=== PATIENT | female | born 1965 | race Caucasian/White ===

== ENCOUNTER 2016-11-24 10:18 | Emergency (ER) | payer OTHER ==
[2016-11-24 10:25] VITALS: BP 146/96; PULSE 86; TEMP 98.1; BMI 33.6
[2016-11-24] MEDS ORDERED: IBUPROFEN 400 MG TABLET (FP) PO ONE ×2 (11:05→11:13)
--- NOTE | 2016-11-24 11:10 | PDOC ---
History of Present Illness - General Chief Complaint: Cold Symptoms Stated Complaint: HEADACHE, COLD, COUGH Time Seen by Provider: 11/24/16 10:38 History Source: Patient - History of Present Illness Timing/Duration: reports: other Associated Symptoms: reports: cough, earache, fever/chills, headache, nasal congestion, nasal drainage. denies: sore throat Past History - Past Medical History Allergies/Adverse Reactions: Allergies Allergy/AdvReac Type Severity Reaction Status Date / Time No Known Allergies Allergy Verified 11/24/16 10:25 Home Medications: Ambulatory Orders Amoxicillin - [Amoxicillin 875mg Tablet -] 875 mg PO BID #14 tab 11/24/16 Ibuprofen [Motrin -] 800 mg PO Q6H #30 tablet 11/24/16 Other medical history: NONE - Psycho/Social/Smoking Cessation Hx Anxiety: No Suicidal Ideation: No Smoking History: Never smoked Hx Alcohol Use: No Drug/Substance Use Hx: No Substance Use Type: None Review of Systems - Review of Systems Constitutional: Yes: Fever HEENTM: Yes: Ear Pain, Nose Congestion. No: Throat Pain Respiratory: Yes: Cough. No: Shortness of Breath *Physical Exam - Vital Signs Last Vital Signs Temp Pulse Resp BP Pulse Ox 98.1 F 86 20 146/96 98 11/24/16 10:22 11/24/16 10:22 11/24/16 10:22 11/24/16 10:22 11/24/16 10:22 - Physical Exam General Appearance: Yes: Appropriately Dressed. No: Apparent Distress HEENT: positive: Normal Voice, Pharynx Normal, TM Bulging (w/ erythema). negative: Scleral Icterus (R), Scleral Icterus (L) Neck: positive: Supple. negative: Lymphadenopathy (R), Lymphadenopathy (L) Respiratory/Chest: positive: Lungs Clear, Normal Breath Sounds. negative: Respiratory Distress Cardiovascular: positive: Regular Rate, S1, S2 Integumentary: positive: Dry, Warm Neurologic: positive: Fully Oriented, Alert, Normal Mood/Affect Medical Decision Making - Medical Decision Making 11/24/16 11:08 51 yo F, no sig hx, here w/ [facility] with R ear pain radiating into neck w/ cough, congestion and subjective fever x 2 weeks. Taking otc meds with minimal relief. Pt stable in ED w/ bulging, erythematous R TM, c/w OME, exam otherwise unremarkable. Dc w/ abx *DC/Admit/Observation/Transfer Diagnosis at time of Disposition: Otitis media Qualifiers: Otitis media type: unspecified nonsuppurative Laterality: right Qualified Code( s): H65.91 - Unspecified nonsuppurative otitis media, right ear - Discharge Dispostion Disposition: HOME Condition at time of disposition: Stable - Prescriptions Prescriptions: Amoxicillin - [Amoxicillin 875mg Tablet -] 875 mg PO BID #14 tab Ibuprofen [Motrin -] 800 mg PO Q6H #30 tablet - Referrals Referrals: Kemar Cope MD [Primary Care Provider] - - Patient Instructions Printed Discharge Instructions: Middle Ear Infection Additional Instructions: [place] los medicamentos segn las indicaciones. Retorno por empeoramiento de los s ntomas Print Language: DIVEHI
== END 2016-11-24 11:43 | disposition home or self-care (01) ==
LOC: JERFT 10:18
DX: H65.91 Unspecified nonsuppurative otitis media, right ear (principal)
CPT/HCPCS: 99281-25

== ENCOUNTER 2016-11-26 09:24 | Day surgery (SDC) | payer OTHER ==
[2016-11-26 10:40] VITALS: BMI 33.6
[2016-11-26 12:58] VITALS: TEMP 98
[2016-11-26 13:26] VITALS: PULSE 69
[2016-11-26 13:39] VITALS: BP 137/96
--- NOTE | 2016-11-27 12:06 | PATH ---
Surgical Pathology Report Patient Name: USMAN BAY [facility]. Rec. #: [id number] /Age/Gender: 1965 (Age: 51) / F Account: [id number] Location: [facility]-ENDOSCOPY Taken: 11/26/2016 Received: 11/26/2016 Reported: 11/27/2016 Physicians: Bryan Castle M.D. Specimen(s) Received A: BX DUODENUM B: BX ERYTHEMA ANTRUM C: BX BODY OF STOMACH D: BX IRREGULAR Z-LINE Clinical History GERD Erythema in antrum, irregular Z line Final Diagnosis A. DUODENUM, BIOPSY: MILD NONSPECIFIC CHRONIC DUODENITIS. IMMUNOSTAIN FOR H. PYLORI IS NEGATIVE. B. STOMACH, ANTRUM ERYTHEMA, BIOPSY: FOCAL MILD ACTIVE GASTRITIS AND REACTIVE GASTROPATHY. IMMUNOSTAIN FOR H. PYLORI IS NEGATIVE. C. STOMACH, BODY, BIOPSY: GASTRIC FUNDIC MUCOSA WITH NO PATHOLOGIC CHANGES. IMMUNOSTAIN FOR H. PYLORI IS NEGATIVE. D. ESOPHAGUS, Z LINE, BIOPSY: SQUAMOUS AND GASTRIC MUCOSA WITH CHRONIC INFLAMMATION. NO INTESTINAL METAPLASIA IDENTIFIED (NO LEWIS'S IDENTIFIED). Electronically Signed Elias Newman M.D. Gross Description A. Received in formalin, labeled "biopsy duodenum" are 2 chavez, irregular portions of soft tissue averaging 0.3 cm. in greatest dimension. The specimens are submitted in toto in one cassette. B. Received in formalin, labeled "biopsy antrum erythema" are 2 chavez, irregular portions of soft tissue averaging 0.3 cm. in greatest dimension. The specimens are submitted in toto in one cassette. C. Received in formalin, labeled "biopsy body of stomach" is a chavez, irregular portion of soft tissue measuring 0.2 cm. in greatest dimension. The specimen is submitted in toto in one cassette. D. Received in formalin, labeled "biopsy irregular Z line" are 2 chavez, irregular portions of soft tissue measuring 0.2 and 0.3 cm. in greatest dimension. The specimens are submitted in toto in one cassette. 11/26/2016 saudi11/26/2016
== END 2016-11-26 13:39 | disposition home or self-care (01) ==
LOC: JASU-ENDO 09:24
PROVIDERS: ATTEND Internal Medicine Gastroenterology
PROC: 0DB68ZX Excision of Stomach, Via Natural or Artificial Opening Endoscopic, Diagnostic (ICD-10-PCS; 2016-11-26)
PROC: 0DB58ZX Excision of Esophagus, Via Natural or Artificial Opening Endoscopic, Diagnostic (ICD-10-PCS; principal; 2016-11-26 11:00)
DX: K29.80 Duodenitis without bleeding (principal); K29.70 Gastritis, unspecified, without bleeding
CPT/HCPCS: 84703; 88305-TC; 88342-TC

== ENCOUNTER 2016-12-10 07:17 | Day surgery (SDC) | payer OTHER ==
[2016-12-09 14:17] VITALS: BMI 33.6
[2016-12-10] MEDS ORDERED: PROPOFOL 20 ML ONE ×2 (08:27)
[2016-12-10 09:48] VITALS: TEMP 98
[2016-12-10 10:37] VITALS: BP 131/83; PULSE 65
--- NOTE | 2016-12-11 13:19 | PATH ---
Surgical Pathology Report Patient Name: USMAN BAY [facility]. Rec. #: [id number] /Age/Gender: 1965 (Age: 51) / F Account: [id number] Location: [facility]-ENDOSCOPY Taken: 12/10/2016 Received: 12/10/2016 Reported: 12/11/2016 Physicians: Bryan Castle M.D. Specimen(s) Received BX DISTAL TRANSVERSE COLON POLYP Clinical History Screening Colon polyp Final Diagnosis COLON, TRANSVERSE, POLYP, BIOPSY: POLYPOID FRAGMENT OF COLONIC MUCOSA WITH FOCAL SURFACE HYPERPLASTIC CHANGE. Electronically Signed Kory Brewer M.D. Gross Description Received in formalin, labeled "biopsy transverse colon polyp" is a chavez, irregular portion of soft tissue measuring 0.4 cm in greatest dimension. The specimen is submitted in toto in one cassette. 12/10/201612/10/2016
== END 2016-12-10 10:37 | disposition home or self-care (01) ==
LOC: JASU-ENDO 07:17
PROVIDERS: ATTEND Internal Medicine Gastroenterology
PROC: 0DBL8ZX Excision of Transverse Colon, Via Natural or Artificial Opening Endoscopic, Diagnostic (ICD-10-PCS; principal; 2016-12-10 08:00)
DX: Z12.11 Encounter for screening for malignant neoplasm of colon (principal); Z80.0 Family history of malignant neoplasm of digestive organs; D12.3 Benign neoplasm of transverse colon; K64.8 Other hemorrhoids
CPT/HCPCS: 84703; 88305-TC

== ENCOUNTER 2019-06-10 19:24 | Emergency (ER) | payer OTHER | END 2019-06-10 20:12 | disposition home or self-care (01) | LOC: JERFT 19:24 ==

== ENCOUNTER 2024-02-26 04:40 | Day surgery (SDC) | payer OTHER ==
[2024-02-26 07:17] VITALS: BMI 30.9
[2024-02-26 07:53] VITALS: RESP 18
[2024-02-26 08:40] VITALS: TEMP 98
[2024-02-26 09:27] VITALS: BP 125/77; PULSE 67
== END 2024-02-26 10:50 | disposition home or self-care (01) ==
LOC: JASU-ENDO 04:40
PROVIDERS: ATTEND Internal Medicine Gastroenterology
PROC: 0DB38ZX Excision of Lower Esophagus, Via Natural or Artificial Opening Endoscopic, Diagnostic (ICD-10-PCS; 2024-02-26)
PROC: 0DB78ZX Excision of Stomach, Pylorus, Via Natural or Artificial Opening Endoscopic, Diagnostic (ICD-10-PCS; 2024-02-26)
PROC: 0DB68ZX Excision of Stomach, Via Natural or Artificial Opening Endoscopic, Diagnostic (ICD-10-PCS; 2024-02-26)
PROC: 0DJD8ZZ Inspection of Lower Intestinal Tract, Via Natural or Artificial Opening Endoscopic (ICD-10-PCS; principal; 2024-02-26 09:30)
DX: Z12.11 Encounter for screening for malignant neoplasm of colon (principal); K21.00 Gastro-esophageal reflux disease with esophagitis, without bleeding; K29.50 Unspecified chronic gastritis without bleeding; Z98.84 Bariatric surgery status
CPT/HCPCS: 43239; G0121; 88305-TC; 88342-TC

== ENCOUNTER 2024-04-22 16:43 | Emergency (ER) | payer OTHER ==
[2024-04-22 16:54] VITALS: BP 137/83; PULSE 88; RESP 18; TEMP 98.2; BMI 29.2
[2024-04-22] MEDS: KETOROLAC TROMETHAMINE 30 MG/1 ML VIAL IM ONE (17:51)
[2024-04-22] MEDS ORDERED: KETOROLAC TROMETHAMINE 30 MG/1 ML VIAL ONE (17:53)
== END 2024-04-22 18:53 | disposition home or self-care (01) ==
LOC: JERFT 16:43
PROC: 3E0233Z Introduction of Anti-inflammatory into Muscle, Percutaneous Approach (ICD-10-PCS; principal; 2024-04-22)
DX: M79.601 Pain in right arm (principal); W01.0XXA Fall on same level from slipping, tripping and stumbling without subsequent striking against object, initial encounter
CPT/HCPCS: 73030-TC-RT-FY; 73060-TC-RT-FY; 99284-25